=== PATIENT | female | born 1955 | race Caucasian/White ===

== ENCOUNTER 2018-10-21 11:23 | Inpatient (IN) | payer BC, OTHER ==
[~2018-10-21] VITALS: Ht 157.5 cm; Wt 64.4 kg
--- NOTE | 2018-10-21 11:45 | NUR ---
DIFFUSE ABDOMINAL PAIN WORST TO RT SIDE SINCE FRIDAY, -n/v/d. TENDER TO TOUCH. SKIN INTACT, NO ACUTE DISTRESS. PAIN IS 8/10 AND "FEELS LIKE PULLING". SEEN BY DR MERCHANT. WILL CARRY OUT ORDERS AND CONT TO MONITOR.
[2018-10-21] MEDS ORDERED: IV NS 0.9% 500 ML BAG IV ONE (12:00)
[2018-10-21 12:07] LABS: BASOPHILS % (AUTO) 0.2 % (0.0-2.0); EOSINOPHILS % (AUTO) 0.1 % (0.0-6.0); HEMATOCRIT 51 % (33-45); LYMPHOCYTES # (AUTO) 0.8 /CMM (0.8-4.8); LYMPHOCYTES % (AUTO) 11.6 % (20.0-44.0); MEAN CORPUSCULAR HGB CONC 33 g/dl (31.0-36.0); MEAN CORPUSCULAR VOLUME 99 fL (82-100); MONOCYTES # (AUTO) 0.3 /CMM (0.1-1.30); MONOCYTES % (AUTO) 5.1 % (2.0-12.0); NEUTROPHILS # (AUTO) 5.4 /CMM (1.8-8.9); PLATELET COUNT (AUTO) 288 /CMM (150-450); RED BLOOD CELL COUNT(AUTO) 5.17 MIL/uL (4.0-5.2); WHITE BLOOD COUNT (AUTO) 6.5 K/uL (4.3-11.0)
[2018-10-21] MEDS ORDERED: NA PHOS,M-B/NA PHOS,DI-BA 1 EA ENEMA RC ONE (12:09)
--- NOTE | 2018-10-21 12:18 | NUR ---
ADMINISTERED FLEET ENEMA PER MD ORDER. PT CURRENTLY IN RESTROOM.
[2018-10-21 12:19] LABS: ALBUMIN 3.1 g/dL (3.4-5.0); BILIRUBIN,DIRECT 0.3 mg/dL (0.0-0.2); BILIRUBIN,TOTAL 1.4 mg/dL (0.2-1.0); CALCIUM, SERUM 9.3 mg/dL (8.5-10.1); CREATININE 1.1 mg/dL (0.6-1.3); POTASSIUM 4.5 mmol/L (3.5-5.1); TOTAL PROTEIN, SERUM 7.7 g/dL (6.4-8.2)
--- NOTE | 2018-10-21 12:54 | NUR ---
PT TAKEN TO CT VIA CATHY
--- NOTE | 2018-10-21 13:00 | NUR ---
PT BACK FROM CT, FORREST WELL.
[2018-10-21] MEDS ORDERED: PIPERACILLIN /TAZOBACTAM 3.375 G in IV D5W 50 ML IV ONE (13:30)
[2018-10-21] MEDS ORDERED: IV NS 0.9% 1,000 ML IV ONE (13:30)
[2018-10-21] MEDS ORDERED: PIPERACILLIN /TAZOBACTAM 3.375 G VIAL IV ONE (13:49)
[2018-10-21] MEDS ORDERED: IV NS 0.9% 1,000 ML IV PRN (13:56)
[2018-10-21] MEDS ORDERED: MORPHINE SULFATE INJ 4 MG/ML DISP.SYRIN ONE (13:58)
[2018-10-21] MEDS ORDERED: ONDANSETRON HCL/PF 4 MG/2 ML VIAL ONE (13:58)
[2018-10-21] MEDS ORDERED: LEVO150T PO (13:59)
[2018-10-21] MEDS ORDERED: Z GUARD REMEDY 2 OZ OINT TP PRN (14:00)
[2018-10-21] MEDS ORDERED: hydrALAZINE HCL 25 MG TABLET PO PRN (14:00)
[2018-10-21] MEDS ORDERED: ONDANSETRON HCL/PF - ER 4 MG/2 ML VIAL IV ONE (14:00)
[2018-10-21] MEDS ORDERED: ZOLPIDEM TARTRATE 5 MG TABLET PO PRN (14:00)
[2018-10-21] MEDS ORDERED: MAG HYDROX/AL HYDROX/SIMETH 30 ML UDC PO PRN (14:00)
[2018-10-21] MEDS ORDERED: MAGNESIUM HYDROXIDE 30 ML UDC PO PRN (14:00)
[2018-10-21] MEDS ORDERED: MORPHINE SULFATE INJ 2 MG/ML DISP.SYRIN IV ONE (14:00)
[2018-10-21] MEDS ORDERED: ONDANSETRON HCL/PF 4 MG/2 ML VIAL IVP PRN (14:00)
[2018-10-21] MEDS ORDERED: HYDROCODONE/APAP 5/325MG 1 EACH TABLET PO PRN (14:00)
[2018-10-21] MEDS ORDERED: ACETAMINOPHEN 325 MG TABLET PO PRN (14:00)
[2018-10-21] MEDS ORDERED: METOCLOPRAMIDE HCL 10 MG/2 ML VIAL ONE (14:30)
[2018-10-21] MEDS ORDERED: MIDAZOLAM HCL 2 MG/2ML VIAL ONE (14:30)
[2018-10-21] MEDS ORDERED: FENTANYL PF 250MCG/5ML AMPUL ONE (14:30)
[2018-10-21] MEDS ORDERED: FAMOTIDINE/PF INJ 20 MG/2 ML VIAL IV ONE (14:31)
[2018-10-21] MEDS ORDERED: ROCURONIUM BROMIDE 50 MG/5 ML ONE (14:31)
--- NOTE | 2018-10-21 14:35 | NUR ---
PT TAKEN TO SURGERY. CONSENT SIGNED AND CHECKLIST COMPLETED
--- NOTE | 2018-10-21 14:35 | NUR ---
PT ASSIGNED TO TELE 326-1 Addendum: 10/21/18 at 1518 by EMPASCUAL PT IS ASSIGNED TO MED/SURG
[2018-10-21] MEDS ORDERED: LIDOCAINE HCL/PF 1% 30 ML SDV ONE (15:03)
[2018-10-21] MEDS ORDERED: BUPIVACAINE MPF 0.5% W/EPI INJ 30 ML VIAL ONE (15:03)
--- NOTE | 2018-10-21 15:51 | NUR ---
REPORT GIVEN TO ELA MARIE FOR 326-1 JANET FOR LIZ Addendum: 10/21/18 at 1603 by FLASH MED SURG
[2018-10-21] MEDS ORDERED: BACITRACIN OPHTH OINT 3.5 GM TUBE ONE (16:55)
[2018-10-21] MEDS ORDERED: PIPERACILLIN /TAZOBACTAM 4.5 G in IV D5W 50 ML IV SCH (18:00)
[2018-10-21] MEDS ORDERED: HYDROMORPHONE 1 MG/1 ML DISP.SYRIN IV PRN (18:00)
--- NOTE | 2018-10-21 18:20 | NUR ---
MS RN NOTES ADMITTED PATIENT FROM OPERATING ROOM REPORT GIVEN BY ANNE AT BED SIDE. PATIENT ALERT ORIENTED X 4 , AD BETSIDE, NO ACUTE DISTRESS NOTED. NO COMPLAINT OF PAIN AT THIS TIME.VITAL SIGNS STABLE. DRESSING ON ABDOMEN CLEAN DRY AND INTACT. NG TUBE ON RIGHT NARES ON LOW INTERMITTENT SUCTION. OSMAN CATHETHER INTACT DRAINING WELL. IV ACCESS PATENT AND INTACT, NO REDNESS OR SWELLING NOTED. ORIENTED TO THE ROOM. NEEDS ATTENDED AND ANTICIPATED. SAFETY MEASURES IN PLACE. CALL LIGHT WITHIN REACH. WILL CONTINUE TO MONITOR ACCORDINGLY.
--- NOTE | 2018-10-21 19:00 | NUR ---
MS RN NOTES PATIENT ALERT ORIENTED X 4. NO ACUTE DISTRESS NOTED. NO COMPLAINT OF PAIN AT THIS TIME. VITAL SIGNS REMAIN STABLE THROUGHOUT THE SHIFT. DRESSING ON RIGHT ABDOMEN CLEAN DRY AND INTACT. NEEDS ATTENDED AND ANTICIPATED. SAFETY MEASURES IN PLACE. CALL LIGHT WITHIN REACH. ENDORSED TO NIGHT NURSE FOR CONTINUITY OF CARE.
--- NOTE | 2018-10-21 19:30 | NUR ---
MS/RN OPENING NOTES RECEIVED PATIENT S/P SURGERY OF EXPLORATORY APPENDECTOMY WITH GENERAL ANESTHESIA. PATIENT, ALERT, ORIENTED X3, ABLE TO VERBALIZE NEEDS, DENIES PAIN AT THIS TIMES, VITAL SIGNS MONITORED , ON ROOM AIR WITH ORDER RECEIVED FROM DR. COOPER AND CARRIED OUT, ON IV ANTIBIOTIC TO ADMINISTER WILL MONITOR FOR ANY COMPLICATIONS, ABDOMEN WITH DRESSING ON , NO DRAINAGE.ON NGT WITH INTERMITENT SUCTION, OSMAN ON DRAINING YELLOW URINE. SKIN WATM TO TOUCH. BED LOCKED, CALL LIGHTS WITHIN REACH, ON NPO EXCEPT ICE CHIPS.
[2018-10-21] MEDS ORDERED: LEVOFLOXACIN 750 MG /D5W 150ML 750 MG in PREMIX 1 EA IV SCH (20:00)
--- NOTE | 2018-10-21 20:00 | NUR ---
MS/RN NOTES MAXIMINO PROVIDED ROOM ORIENTATION, WITH BELONGINGS, ORDERS RECEIVED.
[2018-10-21 20:08] VITALS: BP 128/66
[2018-10-21] MEDS: IV LR 1000 ML 1,000 ML IV PRN (20:21)
[2018-10-21 20:44] VITALS: BP 128/66
[2018-10-21] MEDS: METRONIDAZOLE 500MG/ NS 100ML 500 MG in PREMIX 1 EA IV SCH (21:25)
[2018-10-21] MEDS: MORPHINE SULFATE INJ 2 MG/ML DISP.SYRIN IV PRN (22:25)
--- NOTE | 2018-10-21 22:28 | NUR ---
PAIN MEDICATION REQUESTED BY PATIENT FOR 910 ABDOMINAL PAIN TIGHTNESS ANS ACHING PAIN. BLOOD PRESSURE CHECK 127/74, PULSE RATE AT 90, ON 2 LITER OXYGEN VIA NC.ALERT, ORIENTED.
[2018-10-21] MEDS: PIPERACILLIN /TAZOBACTAM 3.375 G in IV D5W 100 ML IV SCH (22:47)
[2018-10-22] MEDS: MORPHINE SULFATE INJ 2 MG/ML DISP.SYRIN IV PRN ×2 (02:33→07:00)
[2018-10-22] MEDS: METRONIDAZOLE 500MG/ NS 100ML 500 MG in PREMIX 1 EA IV SCH ×3 (04:28→21:00)
--- NOTE | 2018-10-22 06:00 | NUR ---
MD CAGE MADE AWARE REGARDING PATIENT REQUEST TO BE DNR/DNI, TO FOLLOW UP WITH AM, AND CLARIFIED LAB RESULT ELEVATED LACTIC ACID OF 6.1. MADE AWARE.
[2018-10-22] MEDS: PIPERACILLIN /TAZOBACTAM 3.375 G in IV D5W 100 ML IV SCH ×3 (06:48→21:17)
--- NOTE | 2018-10-22 07:03 | NUR ---
PAIN MEDICATION GIVEN MORPHINE 2MG/IV WILL MONITOR RELIEF.
--- NOTE | 2018-10-22 07:30 | NUR ---
RN OPENING NOTES PT AWAKE AND RESTING IN BED. PER PATIENT SHE HAS OCCASIONAL ABD "SPASMS" PT GIVEN PRN MORPHINE DURING PRIOR SHIFT. PT HAS A LEFT HAND IV RUNNING LR @150 ML/HR. PT TOLERATING FLUID WELL. NGTUBE INTACT AND CONNECTED TO INTERMITTENED SUCTIONING. OSMAN CATHETER INTACT AND DRAINING WELL. NO BM AND NO GAS PASSED. SAFETY PRECAUTIONS IN PLACE, BED IN LOWEST LOCKED POSITION, X2 SIDE RAILS UP AND CALL LIGHT WITHIN REACH. WILL CONTINUE TO MONITOR.
[2018-10-22 07:31] LABS: BASOPHILS % (AUTO) 0.1 % (0.0-2.0); HEMATOCRIT 45 % (33-45); HEMOGLOBIN 15.6 g/dL (11.5-14.8); LYMPHOCYTES # (AUTO) 0.7 /CMM (0.8-4.8); MEAN CORPUSCULAR HGB CONC 35 g/dl (31.0-36.0); MEAN CORPUSCULAR VOLUME 98 fL (82-100); MONOCYTES # (AUTO) 0.8 /CMM (0.1-1.30); MONOCYTES % (AUTO) 10.6 % (2.0-12.0); NEUTROPHILS # (AUTO) 5.7 /CMM (1.8-8.9); NEUTROPHILS % (AUTO) 79.3 % (43.0-81.0); PLATELET COUNT (AUTO) 313 /CMM (150-450); RED BLOOD CELL COUNT(AUTO) 4.59 MIL/uL (4.0-5.2); WHITE BLOOD COUNT (AUTO) 7.2 K/uL (4.3-11.0)
[2018-10-22 07:55] LABS: CALCIUM, SERUM 8.2 mg/dL (8.5-10.1); CREATININE 0.9 mg/dL (0.6-1.3); MAGNESIUM 1.7 mg/dL (1.8-2.4); PHOSPHORUS 3.7 mg/dL (2.5-4.9); POTASSIUM 4.1 mmol/L (3.5-5.1)
--- NOTE | 2018-10-22 07:55 | NUR ---
MS/RN NOTES ENDORSE TO AM RN FOR LIZ. PATIENT LAST PAIN MEDICATION GIVEN AT 0700. RESPIRATIONS EVEN AND UNLABORED WITH OXYGEN AT 2L. BED LOCKED CALL LIGHTS WITHIN REACH.OSMAN DRAINING URINE.
[2018-10-22 08:00] VITALS: BP 117/65
[2018-10-22] MEDS: Magnesium 1GM/D5W 100ML PREMIX 100 ML IV SCH ×2 (11:49→15:31)
[2018-10-22] MEDS: GABAPENTIN 300 MG CAPSULE PO SCH ×2 (12:08→21:13)
[2018-10-22] MEDS: ACETAMINOPHEN 325 MG TABLET PO SCH ×2 (12:10→21:13)
[2018-10-22] MEDS: IBUPROFEN 400 MG TABLET PO SCH ×2 (12:10→21:13)
[2018-10-22] MEDS: PANTOPRAZOLE 40 MG TABLET.DR PO SCH (12:12)
[2018-10-22] MEDS ORDERED: HYDROCODONE/APAP 5/325MG 1 EACH TABLET PO PRN (13:00)
[2018-10-22] MEDS ORDERED: Magnesium 1GM/D5W 100ML PREMIX PIGGYBACK IV ONE (13:00)
[2018-10-22] MEDS ORDERED: IBUPROFEN 800 MG TABLET PO SCH (13:00)
[2018-10-22] MEDS: SENNOSIDES/DOCUSATE SODIUM 1 TAB TABLET PO SCH (13:25)
[2018-10-22] MEDS: POLYETHYLENE GLYCOL 3350 17 GM POWD.PACK PO SCH ×2 (13:25→21:13)
[2018-10-22 16:00] VITALS: BP 121/70
--- NOTE | 2018-10-22 18:54 | NUR ---
RN CLOSING NOTES PT AWAKE AND RESTING IN BED. ALL PATIENT NEEDS MET DURING THE SHIFT. PER DR COOPER NGTUBE REMOVED. PT HAS A LEFT HAND IV RUNNING LR @150 ML/HR. PT TOLERATING FLUID WELL. OSMAN CATHETER INTACT AND DRAINING WELL. NO BM AND NO GAS PASSED. SAFETY PRECAUTIONS IN PLACE, BED IN LOWEST LOCKED POSITION, X2 SIDE RAILS UP AND CALL LIGHT WITHIN REACH. WILL ENDORSE TO RECOVERY COORDINATOR NURSE FOR CONTINUITY OF CARE.
[2018-10-22 20:00] VITALS: BP 105/52
--- NOTE | 2018-10-22 20:18 | NUR ---
RN OPENING NOTES RECEIVED PT. PT STABLE AND RESTING IN BED. NO S/S OF RESP DISTRESS/SOB. NO C/O PAIN AT THIS TIME. PT IS S/P EMERGENCY APPENDECTOMY PERFORMED ON 10/21/18. NC IN PLACE WITH O2 AT 2L/MIN. F/C IN PLACE, PATENT. PT REFUSES REMOVAL OF FC AT THIS TIME. PT NPO ORDER STILL IN PLACE WITH INSTRUCTIONS FROM OR SURGEON (MD COOPER) TO ADVANCE DIET SLOWLY TOLERATED. SAFETY MEASURES IN PLACE, CALL LIGHT WITHIN REACH. WILL CONTINUE TO MONITOR.
[2018-10-22 20:39] VITALS: BP 108/52
[2018-10-23] MEDS: METRONIDAZOLE 500MG/ NS 100ML 500 MG in PREMIX 1 EA IV SCH ×3 (03:49→21:12)
[2018-10-23] MEDS: IV LR 1000 ML 1,000 ML IV PRN (03:49)
[2018-10-23] MEDS: PIPERACILLIN /TAZOBACTAM 3.375 G in IV D5W 100 ML IV SCH ×3 (05:33→20:56)
[2018-10-23] MEDS: IBUPROFEN 400 MG TABLET PO SCH ×3 (05:33→20:57)
--- NOTE | 2018-10-23 06:16 | NUR ---
RN CLOSING NOTE PT IN ROOM RESTING. AWAKE AND ALERT. A/OX 4. NO S/S OF RESP DISTRESS. NO C/O PAIN AT THIS TIME. ALL PT NEEDS ANTICIPATED AND MET. SAFETY MEASURES IN PLACE, CALL LIGHT WITHIN REACH. WILL ENDORSE TO DAY SHIFT FOR LIZ.
[2018-10-23 07:00] LABS: BASOPHILS % (AUTO) 0.4 % (0.0-2.0); EOSINOPHILS % (AUTO) 1.4 % (0.0-6.0); HEMATOCRIT 37 % (33-45); HEMOGLOBIN 12.5 g/dL (11.5-14.8); LYMPHOCYTES # (AUTO) 0.8 /CMM (0.8-4.8); LYMPHOCYTES % (AUTO) 9.9 % (20.0-44.0); MEAN CORPUSCULAR HGB CONC 34 g/dl (31.0-36.0); MEAN CORPUSCULAR VOLUME 97 fL (82-100); MONOCYTES # (AUTO) 0.5 /CMM (0.1-1.30); MONOCYTES % (AUTO) 6.3 % (2.0-12.0); NEUTROPHILS # (AUTO) 6.5 /CMM (1.8-8.9); PLATELET COUNT (AUTO) 272 /CMM (150-450); RED BLOOD CELL COUNT(AUTO) 3.78 MIL/uL (4.0-5.2); WHITE BLOOD COUNT (AUTO) 7.9 K/uL (4.3-11.0)
--- NOTE | 2018-10-23 07:32 | NUR ---
MS RN OPENING NOTES RECEIVED PT AWAKE IN BED IN NO ACUTE SIGNS OF DISTRESS. A/O X4. ABLE TO MAKE NEEDS KNOWN, DENIES PAIN OR OR ANY DISCOMFORTS AT THIS TIME. PT ON ROOM AIR AT THIS TIME, BREATHING EVEN AND UNLABORED. IV ACCESS ON LEFT HAND INTACT AND PATENT, ATB ZOSYN INFUSING WELL @ 25ML/HR, NO S/S OF INFILTRATIONS NOTED. OSMAN IN PLACE AND ACTIVELY DRAINING CLEAR DARK YELLOW URINE TO URINARY BAG. SAFETY MEASURES IN PLACE. BED IN LOW LOCKED POSITION WITH SR UP X2. CALL LIGHT IN REACH. WILL CONTINUE TO MONITOR PT ACCORDINGLY.
[2018-10-23 08:40] VITALS: BP 100/63
[2018-10-23] MEDS: PANTOPRAZOLE 40 MG TABLET.DR PO SCH (08:52)
[2018-10-23] MEDS: ACETAMINOPHEN 325 MG TABLET PO SCH ×3 (08:52→20:57)
[2018-10-23] MEDS: GABAPENTIN 300 MG CAPSULE PO SCH ×3 (08:52→20:57)
[2018-10-23] MEDS: SENNOSIDES/DOCUSATE SODIUM 1 TAB TABLET PO SCH (08:53)
--- NOTE | 2018-10-23 08:58 | NUR ---
RN NOTES DR COOPER SEEN AND EVALUATED PT. ORDERED TO CHANGED DIET TO REGULAR DIET, TO DISCONTINUE OSMAN CATHETER AND DO PT EVALUATION. WILL CARRY OUT ORDER.
--- NOTE | 2018-10-23 12:07 | NUR ---
RN NOTES OSMAN CATHETER DISCONTINUED AND REMOVED PER MD ORDER. OUTPUT NOTED AT 300ML. NO HEMATURIA NOTED. WILL CONTINUE TO MONITOR.
[2018-10-23 16:11] VITALS: BP 119/67
--- NOTE | 2018-10-23 18:46 | NUR ---
MS RN CLOSING NOTES PT SITTING ON CHAIR BY BEDSIDE AT THIS TIME. A/O X4. ABLE TO MAKE NEEDS KNOWN. PT TOLERATED REGULAR DIET TODAY WITH NO C/O ABDOMINAL PAIN, N & V. ON ROOM AIR, BREATHING EVEN AND UNLABORED. IV ACCESS ON LEFT HAND INTACT AND PATENT, IVF OF LR @ 100ML/HR INFUSING WELL, NO S/S OF INFILTRATIONS NOTED. S/P OSMAN REMOVED, PT URINATED X1 IN THE TOILET. CALL LIGHT IN REACH. ALL NEEDS AND CARE ATTENDED WELL. WILL ENDORSE TO CHEMISTRY INSTRUCTOR NURSE FOR LIZ.
--- NOTE | 2018-10-23 19:47 | NUR ---
RN OPENING NOTES RECEIVED PATIENT AWAKE IN BED. PATIENT IS A/O X4. ABLE TO MAKE NEEDS KNOWN. PATIENT HAS NO SIGNS OF RESPIRATORY DISTRESS. RESPIRATIONS EVEN AND UNLABORED. IV ACCESS PATENT AND RUNNING WELL. SAFETY PRECAUTIONS IMPLEMENTED. CALL LIGHT WITHIN REACH. WILL CONTINUE TO MONITOR PATIENT THROUGHOUT THE SHIFT.
[2018-10-23 20:00] VITALS: BP 115/59
[2018-10-23 20:11] VITALS: BP 115/59
[2018-10-23] MEDS: POLYETHYLENE GLYCOL 3350 17 GM POWD.PACK PO SCH (21:00)
[2018-10-24] MEDS: METRONIDAZOLE 500MG/ NS 100ML 500 MG in PREMIX 1 EA IV SCH (04:02)
[2018-10-24] MEDS: PIPERACILLIN /TAZOBACTAM 3.375 G in IV D5W 100 ML IV SCH ×3 (05:05→21:29)
[2018-10-24] MEDS: IBUPROFEN 400 MG TABLET PO SCH ×3 (05:06→21:22)
--- NOTE | 2018-10-24 06:23 | NUR ---
RN CLOSING NOTES PATIENT AWAKE IN BED AT THIS TIME. A/O X4. ABLE TO MAKE NEEDS KNOWN.NO S/S OF RESPIRATORY DISTRESS. DENIES SHORTNESS OF BREATH. PATIENT IS ON ROOM AIR, BREATHING EVEN AND UNLABORED. IV SITE PATENT AND INTACT. PATIENT HAS NO COMPLAINTS OF PAIN AT THIS TIME. PATIENT URINATED TWICE IN THE TOILET. SAFETY PRECAUTIONS IMPLEMENTED. CALL LIGHT WITHIN REACH. WILL ENDORSE TO AM RN.
[2018-10-24 07:02] LABS: BASOPHILS % (AUTO) 0.3 % (0.0-2.0); EOSINOPHILS % (AUTO) 2.7 % (0.0-6.0); HEMATOCRIT 37 % (33-45); HEMOGLOBIN 12.5 g/dL (11.5-14.8); LYMPHOCYTES # (AUTO) 1.3 /CMM (0.8-4.8); LYMPHOCYTES % (AUTO) 14.3 % (20.0-44.0); MEAN CORPUSCULAR HGB CONC 34 g/dl (31.0-36.0); MEAN CORPUSCULAR VOLUME 97 fL (82-100); MONOCYTES # (AUTO) 0.5 /CMM (0.1-1.30); MONOCYTES % (AUTO) 5.9 % (2.0-12.0); NEUTROPHILS # (AUTO) 7.1 /CMM (1.8-8.9); NEUTROPHILS % (AUTO) 76.8 % (43.0-81.0); PLATELET COUNT (AUTO) 356 /CMM (150-450); RED BLOOD CELL COUNT(AUTO) 3.79 MIL/uL (4.0-5.2); WHITE BLOOD COUNT (AUTO) 9.2 K/uL (4.3-11.0)
[2018-10-24 07:18] LABS: CALCIUM, SERUM 8.8 mg/dL (8.5-10.1); CREATININE 0.9 mg/dL (0.6-1.3); MAGNESIUM 1.9 mg/dL (1.8-2.4); PHOSPHORUS 2.5 mg/dL (2.5-4.9); POTASSIUM 3.4 mmol/L (3.5-5.1)
--- NOTE | 2018-10-24 07:45 | NUR ---
RN MS OPENING NOTES Received patient on room air, no sob noted. Patient denies pain at this time, no active bleeding on her surgical site. Patient is a/o x4 and is able to walk to the restroom. Left hand IV line infusing well with no obstruction. Patient's bed at the lowest setting and call light within reach.
[2018-10-24 08:00] VITALS: BP 122/60
[2018-10-24] MEDS: SENNOSIDES/DOCUSATE SODIUM 1 TAB TABLET PO SCH (08:57)
[2018-10-24] MEDS: GABAPENTIN 300 MG CAPSULE PO SCH ×3 (08:57→21:17)
[2018-10-24] MEDS: ACETAMINOPHEN 325 MG TABLET PO SCH ×3 (08:57→21:18)
[2018-10-24] MEDS: PANTOPRAZOLE 40 MG TABLET.DR PO SCH (08:57)
[2018-10-24] MEDS ORDERED: POTASSIUM CHLORIDE 20 MEQ TAB.PRT.SR PO SCH (10:00)
[2018-10-24] MEDS ORDERED: METRONIDAZOLE 500 MG TABLET GT SCH (13:00)
[2018-10-24] MEDS ORDERED: METRONIDAZOLE 250 MG TABLET GT SCH (13:00)
[2018-10-24] MEDS: LEVOTHYROXINE SODIUM 75 MCG TABLET PO SCH (14:14)
[2018-10-24 16:00] VITALS: BP_SYST 113; BP_SYST 136; BP_DIAS 65; BP_DIAS 72
--- NOTE | 2018-10-24 17:29 | NUR ---
RN MS closing NOTES Patient remains on room air with no sob noted, patient stated that the pain is under control all shift. Patient's abdominal wound remains free of infection, no warmth to the area, patient states that she does not feel any pain from the area. No evidence of blood coming out of the wound. Patient's temperature and vital signs stable all shift. Patient's IVF free flowing and has no obstruction at this time. Patient's bed at lowest setting, call light within reach. Will continue to monitor patient.
--- NOTE | 2018-10-24 19:30 | NUR ---
MS RN INITIAL NOTES Patient in bed, awake, A/O x4 stable oxygen saturation on RA. Abdomen incision dressing C/D/I denies pain. IVF infusing. Call light within reach, safety measure explained, verbalized understanding.
[2018-10-24] MEDS: IV LR 1000 ML 1,000 ML IV PRN (19:43)
[2018-10-24 20:00] VITALS: BP 132/74
[2018-10-24] MEDS: METRONIDAZOLE 500 MG TABLET PO SCH (21:19)
[2018-10-24] MEDS: POLYETHYLENE GLYCOL 3350 17 GM POWD.PACK PO SCH (21:20)
[2018-10-24 22:00] VITALS: BP 132/74
[2018-10-25] MEDS: PIPERACILLIN /TAZOBACTAM 3.375 G in IV D5W 100 ML IV SCH ×2 (04:52→13:00)
[2018-10-25] MEDS: IBUPROFEN 400 MG TABLET PO SCH ×2 (05:51→14:06)
[2018-10-25] MEDS: METRONIDAZOLE 500 MG TABLET PO SCH ×2 (05:51→13:14)
--- NOTE | 2018-10-25 06:24 | NUR ---
MS RN CLOSING NOTES Patient in bed, stable oxygen saturation on RA. Ambulates independently. IVF infusing maintained at 100 ml/hr. On scheduled IV/PO antibiotic, had BM this shift no diarrhea, afebrile. Abdomen incision dressing C/D/I. Abdomen incision site pain controlled with scheduled Tylenol. Slept well, no acute events overnight. Maintained safety, will endorse to oncoming RN.
--- NOTE | 2018-10-25 07:54 | NUR ---
RN MS OPENING NOTES Patient remains on room air, no sob noted. Patient is a/o x4, patient is awake and is lying down comfortably in bed. Patient denies pain at this time. Patient's IVF flowing with no obstruction. Patient's bed at the lowest setting, call light within reach.
[2018-10-25 08:00] VITALS: BP 167/77
[2018-10-25 08:05] LABS: BASOPHILS % (AUTO) 0.4 % (0.0-2.0); EOSINOPHILS % (AUTO) 2.8 % (0.0-6.0); HEMATOCRIT 38 % (33-45); HEMOGLOBIN 12.7 g/dL (11.5-14.8); LYMPHOCYTES # (AUTO) 1.5 /CMM (0.8-4.8); LYMPHOCYTES % (AUTO) 14.9 % (20.0-44.0); MEAN CORPUSCULAR HGB CONC 34 g/dl (31.0-36.0); MEAN CORPUSCULAR VOLUME 97 fL (82-100); MONOCYTES # (AUTO) 1.1 /CMM (0.1-1.30); NEUTROPHILS % (AUTO) 70.9 % (43.0-81.0); PLATELET COUNT (AUTO) 382 /CMM (150-450); RED BLOOD CELL COUNT(AUTO) 3.88 MIL/uL (4.0-5.2); WHITE BLOOD COUNT (AUTO) 9.8 K/uL (4.3-11.0)
[2018-10-25] MEDS: IV LR 1000 ML 1,000 ML IV PRN (08:11)
[2018-10-25] MEDS: SENNOSIDES/DOCUSATE SODIUM 1 TAB TABLET PO SCH (08:15)
[2018-10-25] MEDS: LEVOTHYROXINE SODIUM 75 MCG TABLET PO SCH (08:15)
[2018-10-25] MEDS: GABAPENTIN 300 MG CAPSULE PO SCH ×2 (08:15→13:14)
[2018-10-25] MEDS: PANTOPRAZOLE 40 MG TABLET.DR PO SCH (08:15)
[2018-10-25] MEDS: ACETAMINOPHEN 325 MG TABLET PO SCH ×2 (08:15→13:14)
[2018-10-25 08:18] LABS: CALCIUM, SERUM 8.3 mg/dL (8.5-10.1); CREATININE 0.7 mg/dL (0.6-1.3); MAGNESIUM 1.5 mg/dL (1.8-2.4); PHOSPHORUS 2.9 mg/dL (2.5-4.9); POTASSIUM 3.3 mmol/L (3.5-5.1)
[2018-10-25 09:12] LABS: BAND % (MANUAL) 2 % (0.0-5.0); EOSINOPHILS % (MANUAL) 5 % (0-4); LYMPHOCYTES % (MANUAL) 29 % (16-48); MONOCYTES % (MANUAL) 9 % (0-11.0); NEUTROPHILS % (MANUAL) 55 (42-76)
[2018-10-25] MEDS ORDERED: POTASSIUM CHLORIDE 20 MEQ TAB.PRT.SR PO SCH (10:00)
[2018-10-25] MEDS: Magnesium 1GM/D5W 100ML PREMIX 100 ML IV SCH ×2 (10:33→11:49)
[2018-10-25] MEDS ORDERED: Magnesium 1GM/D5W 100ML PREMIX 100 ML IV SCH (12:30)
[2018-10-25 16:00] VITALS: BP_SYST 122; BP_SYST 148; BP_DIAS 73; BP_DIAS 78
--- NOTE | 2018-10-25 16:19 | NUR ---
BUSINESS ANALYST NOTES Patient remains on room air with no sob, vital signs stable, no temperature, a/o x4, steady gait, and denies pain. Patient's discharge paper signed, instructions were given to patient. Patient has a copy of the d/c paper. Patient's prescription is now with patient , copies in her chart. Patient's belonging in her possession, cellphone, cable splicer, black bag, and clothing present at the time of discharge. IV line removed with no bleeding or swelling noted.
== END 2018-10-25 16:30 | disposition home or self-care (01) | DRG 330 ==
LOC: ER 11:26 → MED 15:47
PROVIDERS: ADMIT Internal Medicine; ATTEND Internal Medicine
PROC: 0DTJ0ZZ Resection of Appendix, Open Approach (ICD-10-PCS; principal; 2018-10-21)
PROC: 0DJD4ZZ Inspection of Lower Intestinal Tract, Percutaneous Endoscopic Approach (ICD-10-PCS; principal; 2018-10-21)
PROC: 0DTH0ZZ Resection of Cecum, Open Approach (ICD-10-PCS; principal; 2018-10-21)
DX: K35.32 Acute appendicitis with perforation, localized peritonitis, and gangrene, without abscess (principal); E87.1 Hypo-osmolality and hyponatremia; E03.9 Hypothyroidism, unspecified; K59.00 Constipation, unspecified; K35.20 Acute appendicitis with generalized peritonitis, without abscess; Z82.49 Family history of ischemic heart disease and other diseases of the circulatory system; Z83.3 Family history of diabetes mellitus; Z79.890 Hormone replacement therapy
CPT/HCPCS: 36415; 80048-TC; 80061-TC; 80076-TC; 83735-TC; 84100-TC; 85025-TC; 87040-TC; 87070-TC; 87075-TC; 87081-TC; 87186-TC; 88304-TC; 88307-TC; A4216; A6253; A6402; G0378; J0690; J1956; J2250; J2270; J2405; J2543; J2704; J2710; J2765; J3010; J3475; J3490; J7030; J7040; J7060; J7120